=== PATIENT | female | born 1995 | race American Indian/Alaskan Native ===

== ENCOUNTER 2017-01-15 21:08 | Emergency (ER) | payer SELFPAY ==
[2017-01-15] MEDS ORDERED: TYLENOL PO ONE (22:23)
--- NOTE | 2017-01-16 01:13 | Cat Scan Report ---
FINAL REPORT PROCEDURE: CT HEAD/BRAIN WO CON TECHNIQUE: Computerized tomography of the head was performed without contrast material. HISTORY: headache COMPARISON: No prior studies are available for comparison. FINDINGS: Skull and scalp: Normal. Paranasal sinuses: Normal. Ventricles and subarachnoid spaces: Normal. Cerebrum: No evidence of hemorrhage, acute infarction or mass . Cerebellum and brainstem: No evidence of hemorrhage, acute infarction or mass. Vasculature: Normal. Comments: None. IMPRESSION: There is no evidence of an acute intracranial process
[2017-01-16] MEDS ORDERED: KEPPRA 1,000 MG in D5W 100 ML IV STA (01:57)
[2017-01-16] MEDS ORDERED: ATIVAN ONE (01:58)
--- NOTE | 2017-01-16 01:59 | Emergency Department Report ---
ED Seizure HPI - General Chief Complaint: Seizure Stated Complaint: Seizure today, c/o VILLANUEVA Time Seen by Provider: 01/16/17 01:56 Source: patient Mode of arrival: Ambulatory Limitations: No Limitations - History of Present Illness Initial Comments: This is a 21-year-old female, the patient is previously unknown to this provider , reports a past medical history of seizure disorder. She is accompanied by friends/family. Presents to the ER with headache after seizure. Patient reports compliance with her antiepileptic drug therapy, reports no preceding trauma, denies illicit drug use. Patient had one seizure while in the ER, it terminated spontaneously. She thinks that her Keppra needs to be increased. She does not have a primary neurologist. Complains of mild global headache after seizure. This is typical for her the patient. MD Complaint: seizure, possible seizure -: Sudden Description of Episode: loss of consciousness, tonic-clonic movement -: second(s) Witnessed:: Yes Trauma: No Seizure History: known seizure disorder, compliant with medication Possible Precipitating Event: none Associated Symptoms: confusion. denies: chest pain Treatments Prior to Arrival: none - Related Data Previous Rx's Medication Instructions Recorded Last Taken Type levETIRAcetam [Keppra TAB] 1,000 mg PO BID #60 tab 01/16/17 Unknown Rx Allergies Allergy/AdvReac Type Severity Reaction Status Date / Time Penicillins Allergy Itching Verified 01/15/17 22:12 ED Review of Systems ROS: Stated complaint: Seizure today, c/o VILLANUEVA Other details as noted in HPI Constitutional: denies: fever Eyes: denies: vision change ENT: denies: epistaxis Respiratory: denies: cough Cardiovascular: denies: chest pain Gastrointestinal: denies: abdominal pain Genitourinary: denies: dysuria Musculoskeletal: denies: back pain Skin: denies: lesions Neurological: headache. denies: weakness Psychiatric: denies: anxiety ED Past Medical Hx - Past Medical History Previous Medical History?: Yes Hx Seizures: Yes - Surgical History Past Surgical History?: No - Social History Smoking Status: Never Smoker Substance Use Type: None - Medications Home Medications: Home Medications Medication Instructions Recorded Confirmed Last Taken Type levETIRAcetam [Keppra TAB] 1,000 mg PO BID #60 tab 01/16/17 Unknown Rx ED Physical Exam - General Limitations: No Limitations General appearance: alert, in no apparent distress - Head Head exam: Present: atraumatic, normocephalic - Eye Eye exam: Present: normal appearance, EOMI. Absent: nystagmus - ENT ENT exam: Present: normal exam, normal orophraynx, mucous membranes moist, normal external ear exam - Neck Neck exam: Present: normal inspection, full ROM. Absent: tenderness, meningismus - Respiratory Respiratory exam: Present: normal lung sounds bilaterally. Absent: respiratory distress, wheezes, rales, rhonchi, chest wall tenderness, accessory muscle use, decreased breath sounds, prolonged expiratory - Cardiovascular Cardiovascular Exam: Present: regular rate, normal rhythm, normal heart sounds. Absent: bradycardia, tachycardia, irregular rhythm, systolic murmur, diastolic murmur, rubs, gallop - GI/Abdominal GI/Abdominal exam: Present: soft, normal bowel sounds. Absent: distended, tenderness, guarding, rebound, rigid, pulsatile mass - Extremities Exam Extremities exam: Present: normal inspection, full ROM, normal capillary refill. Absent: tenderness, pedal edema, joint swelling, calf tenderness - Back Exam Back exam: Present: normal inspection, full ROM. Absent: tenderness, CVA tenderness (R), CVA tenderness (L), muscle spasm, paraspinal tenderness, vertebral tenderness - Neurological Exam Neurological exam: Present: alert, oriented X3, normal gait, other (Extraocular movements intact. Tongue midline. No facial droop. Facial sensation intact to light touch in the V1, V2, V3 distribution bilaterally. 5 and 5 strength in 4 extremities.. Sensation is intact to light touch in 4 extremities.). Absent : motor sensory deficit - Psychiatric Psychiatric exam: Present: normal affect, normal mood - Skin Skin exam: Present: warm, dry, intact, normal color. Absent: rash ED Course Vital Signs 01/15/17 22:13 Temperature 98.5 F Pulse Rate 73 Respiratory 16 Rate Blood Pressure 100/57 O2 Sat by Pulse 98 Oximetry - Reevaluation(s) Reevaluation #1: 01/16/17 04:45 Differential diagnosis: Seizure, now resolved, polysubstance abuse, pneumonia, urinary tract infection Assessment and plan: 21-year-old female who presented to the ER after seizure- like activity. She is afebrile with reassuring vital signs, had a GCS of 15, with an NIH score of 0. Noncontrast CT scan of the brain is negative, chest x- ray negative, urinalysis is not corroborated UTI. Shortly thereafter, patient had another seizure. She was loaded with 1 g of Keppra, given IV fluids. She is currently post ictal, somewhat somnolent, but arousable. Urine toxicology screen demonstrates the presence of cannabinoids. The patient was clinically sober when I was evaluating her, I suspect that cannabis may be contributing to her breakthrough seizures. We are awaiting the patient to wake up from her postictal state at this time. 01/16/17 04:46 Reevaluation #2: 01/16/17 05:45 Patient awake and alert, walking with steady gait. Clinically sober. Indicates she is not consuming cannabis. She is instructed to not consume cannabis. Instructed not to drive for the next 6 months. Instructed to follow up with outpatient neurology specialist. She will be discharged at this time. Return precautions are reviewed. ED Medical Decision Making - Lab Data Result diagrams: 01/16/17 02:49 01/15/17 22:26 Vital Signs 01/15/17 22:13 Temperature 98.5 F Pulse Rate 73 Respiratory 16 Rate Blood Pressure 100/57 O2 Sat by Pulse 98 Oximetry Lab Results 01/15/17 Range/Units 22:26 HCG, Qual Negative (Negative) Lab Results 01/15/17 01/15/17 01/16/17 Range/Units 22:26 22:26 00:30 WBC (4.5-11.0) K/mm3 RBC (3.65-5.03) M/mm3 Hgb (10.1-14.3) gm/dl Hct (30.3-42.9) % MCV (79-97) fl MCH (28-32) pg MCHC (30-34) % RDW (13.2-15.2) % Plt Count (140-440) K/mm3 Sodium 140 (137-145) mmol/L Potassium 3.9 (3.6-5.0) mmol/L Chloride 104.8 (98-107) mmol/L Carbon Dioxide 23 (22-30) mmol/L Anion Gap 16 mmol/L BUN 11 (7-17) mg/dL Creatinine 0.8 (0.7-1.2) mg/dL Estimated GFR > 60 ml/min BUN/Creatinine Ratio 13.75 % Glucose 76 (65-100) mg/dL Calcium 9.0 (8.4-10.2) mg/dL Total Creatine Kinase 109 (30-135) units/L HCG, Qual Negative (Negative) Urine Color Yellow (Yellow) Urine Turbidity Clear (Clear) Urine pH 6.0 (5.0-7.0) Ur Specific [place] 1.038 H (1.003-1.030) Urine Protein 30 mg/dl (Negative) mg/dL Urine Glucose (UA) Neg (Negative) mg/dL Urine Ketones Tr (Negative) mg/dL Urine Blood Mod (Negative) Urine Nitrite Neg (Negative) Urine Bilirubin Neg (Negative) Urine Urobilinogen 4.0 (<2.0) mg/dL Ur Leukocyte Esterase Tr (Negative) Urine WBC (Auto) 2.0 (0.0-6.0) /HPF Urine RBC (Auto) 2.0 (0.0-6.0) /HPF U Epithel Cells (Auto) 6.0 (0-13.0) /HPF Urine Mucus 2+ /HPF Urine Opiates Screen Urine Methadone Screen Ur Barbiturates Screen Ur Phencyclidine Scrn Ur Amphetamines Screen U Benzodiazepines Scrn Urine Cocaine Screen U Marijuana (THC) Screen Drugs of Abuse Note 01/16/17 01/16/17 Range/Units 01:57 02:49 WBC 8.1 (4.5-11.0) K/mm3 RBC 3.91 (3.65-5.03) M/mm3 Hgb 11.6 (10.1-14.3) gm/dl Hct 35.5 (30.3-42.9) % MCV 91 (79-97) fl MCH 30 (28-32) pg MCHC 33 (30-34) % RDW 16.1 H (13.2-15.2) % Plt Count 227 (140-440) K/mm3 Sodium (137-145) mmol/L Potassium (3.6-5.0) mmol/L Chloride (98-107) mmol/L Carbon Dioxide (22-30) mmol/L Anion Gap mmol/L BUN (7-17) mg/dL Creatinine (0.7-1.2) mg/dL Estimated GFR ml/min BUN/Creatinine Ratio % Glucose (65-100) mg/dL Calcium (8.4-10.2) mg/dL Total Creatine Kinase (30-135) units/L HCG, Qual (Negative) Urine Color (Yellow) Urine Turbidity (Clear) Urine pH (5.0-7.0) Ur Specific [place] (1.003-1.030) Urine Protein (Negative) mg/dL Urine Glucose (UA) (Negative) mg/dL Urine Ketones (Negative) mg/dL Urine Blood (Negative) Urine Nitrite (Negative) Urine Bilirubin (Negative) Urine Urobilinogen (<2.0) mg/dL Ur Leukocyte Esterase (Negative) Urine WBC (Auto) (0.0-6.0) /HPF Urine RBC (Auto) (0.0-6.0) /HPF U Epithel Cells (Auto) (0-13.0) /HPF Urine Mucus /HPF Urine Opiates Screen Presumptive negative Urine Methadone Screen Presumptive negative Ur Barbiturates Screen Presumptive negative Ur Phencyclidine Scrn Presumptive negative Ur Amphetamines Screen Presumptive negative U Benzodiazepines Scrn Presumptive negative Urine Cocaine Screen Presumptive negative U Marijuana (THC) Screen Presumptive positive Drugs of Abuse Note Disclamer - Radiology Data Radiology results: report reviewed, image reviewed interpreted by me: X-ray of the chest is negative for acute disease Noncontrast CT scan of the brain is negative for acute disease Critical care attestation.: If time is entered above; I have spent that time in minutes in the direct care of this critically ill patient, excluding procedure time. ED Disposition Clinical Impression: Seizure Disposition: DC-01 TO HOME OR SELFCARE Is pt being admited?: No Does the pt Need Aspirin: No Condition: Stable Instructions: Recurrent Seizures Adult (ED) Additional Instructions: Do not drive a car or operate motor vehicles the next 6 months. If the patient is consuming cannabis or any illegal drugs, do not consuming them. Cannabis/ marijuana may make it more likely that the patient has seizures. Follow up with any of the listed primary care doctors or neurology specialist within the next 2 weeks. Take the seizure medication as directed. Return to the ER right away with fevers, chills, lethargy, irritability, projectile vomiting, change in mental status, confusion, inability to tolerate liquid feeds. Referrals: PRIMARY CARE, [Primary Care Provider] - 3-5 Days DAYANA MORTON MD [Staff Physician] - 3-5 Days SHEREE ZACARIAS MD [Staff Physician] - 3-5 Days VICTORINA LANTIGUA MD [Staff Physician] - 3-5 Days FANNY GIRALDO MD [Staff Physician] - 3-5 Days
[2017-01-16 02:34] LABS: Anion Gap 16 mmol/L; BUN/Creatinine Ratio 13.75; Blood Urea Nitrogen 11 mg/dL (7-17); Carbon Dioxide 23 mmol/L (22-30); Chloride 104.8 mmol/L (98-107); Creatine Kinase 109 units/L (30-135); Glucose 76 mg/dL (65-100); Potassium 3.9 mmol/L (3.6-5.0); Sodium 140 mmol/L (137-145)
[2017-01-16] MEDS ORDERED: KEPPRA 1,000 MG/NS 0.75% 100ML 1,000 MG/100 ML BAG IV ONE (03:00)
[2017-01-16 03:02] LABS: Bilirubin,Urine NEG (Negative); Blood,Urine MOD (Negative); Ketones,Urine TR mg/dL (Negative); Leukocyte Esterase,Urine TR (Negative); Mucus,Urine 2+ /HPF; Nitrite,Urine NEG (Negative)
[2017-01-16 03:10] LABS: Hematocrit 35.5 % (30.3-42.9); Hemoglobin 11.6 gm/dl (10.1-14.3); Mean Corpuscular HGB Conc 33 % (30-34); Mean Corpuscular Hemoglobin 30 pg (28-32); Mean Corpuscular Volume 91 fl (79-97); Platelet Count 227 K/mm3 (140-440); Red Blood Count 3.91 M/mm3 (3.65-5.03); Red Cell Distribution Width 16.1 % (13.2-15.2); White Blood Count 8.1 K/mm3 (4.5-11.0)
[2017-01-16 03:22] LABS: Urine Drugs of Abuse Note Disclamer
[2017-01-16] MEDS ORDERED: NACL 0.9% 1000 ML 1,000 ML IV ONE (03:27)
[2017-01-16] MEDS ORDERED: ATIVAN IV ONE (03:30)
[2017-01-16 05:49] VITALS: BP 82/40
--- NOTE | 2017-01-16 07:47 | XRay Report ---
AP CHEST: HISTORY: Seizure, pneumonia AP view of the chest demonstrates a normal mediastinal and cardiac contour with clear lungs and normal bony and soft tissue structures. IMPRESSION: Unremarkable AP chest.
== END 2017-01-16 05:50 | disposition home or self-care (01) ==
LOC: ED 21:08
DX: G40.909 Epilepsy, unspecified, not intractable, without status epilepticus (principal); Z88.0 Allergy status to penicillin
CPT/HCPCS: 36415; 70450; 71010; 80048; 80177; 80307; 81001; 82550; 84703; 85027; 96365; 99285; J1953; J2060; J7030

== ENCOUNTER 2017-11-13 08:36 | Emergency (ER) | payer SELFPAY ==
[2017-11-13 08:56] VITALS: BP 105/54
== END 2017-11-13 14:13 ==
LOC: ED 08:36
DX: T63.301A Toxic effect of unspecified spider venom, accidental (unintentional), initial encounter (principal); Y93.89 Activity, other specified; Y99.8 Other external cause status; Y92.89 Other specified places as the place of occurrence of the external cause; Z53.21 Procedure and treatment not carried out due to patient leaving prior to being seen by health care provider

== ENCOUNTER 2017-11-16 08:04 | Emergency (ER) | payer SELFPAY ==
[2017-11-16 08:12] VITALS: BP 109/65
--- NOTE | 2017-11-16 10:51 | Emergency Department Report ---
Abscess Boil HPI - HPI Chief Complaint: Skin/Abscess/Foreign Body Stated Complaint: LUMP ON CHEST Time Seen by Provider: 11/16/17 10:37 Location: Chest (patient reports lump to the mid chest area that is painful) Severity: Moderate (10/10) History: Yes Pain (mid chest), No Fever, No Purulent Drainage, No Previous History, No Insect Bite HPI: This is a 22-year-old patient with severe poor that she has a lump to her mid chest. That has been there for one week. She denies any trauma. Pain is 10/10 and sore. Pain is worse with touch and no alleviating factors. Denies any fever or chills. Denies any nausea or vomiting. She denies any trauma. She is also complaining of toothache to the right upper tooth of the back. She does not have a dentist but says she has access to a dentist. Tetanus vaccine is not up-to-date. She did not take any medication for pain per patient. Pain is exacerbated by touch and no alleviating factors. Home Medications: Previous Rx's Medication Instructions Recorded Last Taken Type levETIRAcetam [Keppra TAB] 1,000 mg PO BID #60 tab 01/16/17 Unknown Rx Ibuprofen [Motrin] 600 mg PO Q8H PRN #12 tablet 11/16/17 Unknown Rx Ondansetron [Zofran Odt] 4 mg PO Q6H PRN #20 tab.rapdis 11/16/17 Unknown Rx Sulfamethoxazole/Trimethoprim 1 each PO BID 10 Days #20 tablet 11/16/17 Unknown Rx [Bactrim DS TAB] Allergies/Adverse Reactions: Allergies Allergy/AdvReac Type Severity Reaction Status Date / Time Penicillins Allergy Itching Verified 01/15/17 22:12 ED Review of Systems ROS: Stated complaint: LUMP ON CHEST Other details as noted in HPI Constitutional: denies: chills, fever Eyes: denies: eye pain, eye discharge, vision change ENT: dental pain. denies: ear pain, throat pain, congestion Respiratory: denies: cough, shortness of breath, SOB with exertion, SOB at rest , wheezing Cardiovascular: denies: chest pain, palpitations, edema, syncope Endocrine: no symptoms reported Gastrointestinal: denies: nausea, vomiting Genitourinary: denies: urgency, dysuria, discharge Musculoskeletal: denies: back pain, joint swelling, arthralgia, myalgia Skin: other (lump to mid chest that is red, tender and swollen.). denies: rash , lesions Neurological: denies: headache, weakness, numbness, paresthesias, confusion, abnormal gait, vertigo Psychiatric: anxiety. denies: depression, homicidal thoughts, suicidal thoughts ED Past Medical Hx - Past Medical History Previous Medical History?: Yes Hx Seizures: Yes - Surgical History Past Surgical History?: No - Family History Family history: hypertension - Social History Smoking Status: Never Smoker Substance Use Type: None - Medications Home Medications: Home Medications Medication Instructions Recorded Confirmed Last Taken Type levETIRAcetam [Keppra TAB] 1,000 mg PO BID #60 tab 01/16/17 Unknown Rx Ibuprofen [Motrin] 600 mg PO Q8H PRN #12 tablet 11/16/17 Unknown Rx Ondansetron [Zofran Odt] 4 mg PO Q6H PRN #20 tab.rapdis 11/16/17 Unknown Rx Sulfamethoxazole/Trimethoprim 1 each PO BID 10 Days #20 tablet 11/16/17 Unknown Rx [Bactrim DS TAB] ED Abscess Boil Physical Exam - Exam General: Vital signs noted. No distress. Alert and acting appropriately. This is a 22-year-old patient that appears slightly anxious, she is tearful because she said she is having painful lump to mid chest area. Front/Back of Body, Lg (Color): 1 - 3 cm indurated, erythema, tender to palpate and minimal fluctuant to mid chest. No drainage noted Size: 3 cm Exam: Yes Tenderness (mid chest), Yes Fluctuance, Yes Surrounding Cellulites/ Erythema, Yes Heart Murmur (S1, S2), Yes Normal Neurologic Exam (alert and oriented 3 and normal gait), Yes Normal Circulation (No cce. + 2 pulses in all extremities, no neurovascular compromise), No Lymphangitis, No Crepitation Exam: Lungs: Clear to auscultate bilaterally, no rhonchi wheezes or rales. I & D Note - I & D Note I & D Note: Incision and drainage of simple abscess. Mid chest wall abscess drained under sterile procedure. Area cleansed with iodine followed by normal saline. 2 mL of lidocaine injected in abscess. #11 blade used to make a small incision approximately 0.25 cm. Cc of thick pus expressed some side. Site with minimal induration. pack with iodoform quarter inch and sterile dry dressing placed side. Tetanus vaccine updated and patient tolerated procedure well ED Course Vital Signs 11/16/17 08:09 Temperature 98.3 F Pulse Rate 65 Respiratory 16 Rate Blood Pressure 109/65 O2 Sat by Pulse 100 Oximetry - Reevaluation(s) Reevaluation #1: 11/16/17 11:23 Given Percocet 5/52 tablets by mouth for pain which after pain. She was also given Ativan 1 mg by mouth for anxiety and she is much calmer. Plan to incision and drain lump to mid chest Reevaluation #2: 11/16/17 12:24 Patient received Zofran 8 mg ODT for nausea and vomiting. Nausea has been relieved Critical care attestation.: If time is entered above; I have spent that time in minutes in the direct care of this critically ill patient, excluding procedure time. ED Medical Decision Making - Medical Decision Making 22-year-old female here complaining of lump to her mid chest area for about a week. She is complaining of pain, redness and swelling around site. Denies any fever and here to be evaluated. Myself and found to have 3 cm cellulitic indurated and fluctuant area to mid chest area. She was given Percocet 5/325 mg 2 tablets by mouth for pain which controlled her pain and Ativan 1 mg by mouth for anxiety because she said she was very anxious about the procedure. She seemed to be a lot more relaxed prior to procedure. Incision and drainage procedure done under sterile procedure please see procedure note for detail. Patient tolerated well. She had an episode of nausea and vomiting suspect from Percocet so she was given 8 mg Zofran which relieved her nausea. Patient given Boostrix 0.5 mL to update her tetanus without any adverse reaction. I discussed the patient her diagnosis and treatment plan and she is in agreement. Patient with abscess and cellulitis to mid chest and encounter for incision and drainage of abscess which was done. Pack and placed the site and patient to return in 4 days for removal of packing. Patient is stable and discharged home with prescription for Bactrim DS, Zofran and Motrin. Patient was educated on acute wound care, diagnosis, treatment plan and medication and needs to follow-up for removal of packing and she voiced understanding. Discharged home, vital signs are stable she is afebrile, pain and nausea control. She voiced understanding and ED Disposition Clinical Impression: Abscess or cellulitis of chest wall, Encounter for incision and drainage procedure Nausea and vomiting Qualifiers: Vomiting type: unspecified Vomiting Intractability: non-intractable Qualified Code(s): R11.2 - Nausea with vomiting, unspecified Disposition: TO HOME OR SELFCARE Is pt being admited?: No Does the pt Need Aspirin: No Condition: Stable Instructions: Abscess Incision and Drainage (ED), Cellulitis (ED), Acute Nausea and Vomiting (ED) Additional Instructions: Please see discharge instruction in acute wound care Follow-up with primary care physician in 3 days Apply warm compresses to affected area 4 times a day to facilitate then and increased drainage return to emergency room in 4 days for removal of packing Keep affected area clean and dry Motrin for pain and please take medication with food to prevent nausea or irritation to stomach lining Take Bactrim DS for infection Return to the emergency room if, he developed fever, chills, increased pain and drainage from site, nausea and vomited, increase in redness and/or weakness. Referrals: PRIMARY CARE [Primary Care Provider] - 11/19/17 [facility] [Outside] - 11/19/17 Forms: Work/School Release Form(ED)
[2017-11-16] MEDS ORDERED: PERCOCET 5/325 PO ONE (11:01)
[2017-11-16] MEDS ORDERED: XYLOCAINE 1% MPF 5 mL INFILTRATI ONE (11:01)
[2017-11-16] MEDS ORDERED: BOOSTRIX IM ONE (11:01)
[2017-11-16] MEDS ORDERED: ATIVAN PO ONE (11:02)
[2017-11-16] MEDS ORDERED: ZOFRAN ODT ONE (12:07)
[2017-11-16] MEDS ORDERED: ZOFRAN ODT PO ONE (12:11)
== END 2017-11-16 12:41 | disposition home or self-care (01) ==
LOC: ED 08:04
DX: L02.213 Cutaneous abscess of chest wall (principal); L03.313 Cellulitis of chest wall; R11.2 Nausea with vomiting, unspecified; Z88.0 Allergy status to penicillin
CPT/HCPCS: 90471; 90715; 99282; Q0162